=== PATIENT | female | born 1950 ===

== ENCOUNTER 2019-02-23 14:23 | Emergency (ER) | payer MEDICARE, BC ==
--- NOTE | 2019-02-23 14:51 | Emergency Department Record ---
History of Present Illness - General Chief Complaint: Fall Injury Stated Complaint: FALL Time Seen by Provider: 02/23/19 14:34 Source: Patient Mode of Arrival: Ambulatory Limitations: No limitations - History of Present Illness Initial Comments: The patient is here due to a trip and fall at [facility] about 2 hours ago. She tripped and landed on her R shoulder injuring it. The patient denied any other injury and did not hit her head, hurt her neck or ribs. 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 Witnessed: Yes, by bystander Place Fall Occurred: Other Loss of Consciousness: None Prolonged Down Time?: No Symptoms Prior to Fall: None Severity: Moderate Severity scale (1-10): 8 Quality: Other Context: Tripped/slipped Associated Symptoms: Denies - Kimberlee Coma Scale Eye Response: (4) Open spontaneously Motor Response: (6) Obeys commands Verbal Response: (5) Oriented Kimberlee Total: 15 - Related Data Home Medications Medication Instructions Recorded Confirmed Last Taken Levothyroxine Sodium [Synthroid] 125 mcg PO DAILY 02/23/19 02/23/19 02/23/19 Metolazone [Zaroxolyn] 1 tab PO DAILY 02/23/19 02/23/19 02/23/19 Rosuvastatin Calcium 5 mg PO DAILY 02/23/19 02/23/19 02/23/19 Allergies Allergy/AdvReac Type Severity Reaction Status Date / Time Penicillins Allergy PT UNSURE Verified 02/23/19 14:30 OF REACTION Sulfa (Sulfonamide AdvReac SKIN Verified 02/23/19 14:30 Antibiotics) IRRITATION Travel Screening - Travel/Exposure Within Last 30 Days Have you traveled within the last 30 days?: No - Travel/Exposure Within Last Year Have you traveled outside the [place] in the last year?: No - Additonal Travel Details Have you been exposed to anyone with a communicable illness?: No - Travel Symptoms Symptom Screening: None Review of Systems Constitutional: Denies: Chills, Fever Eyes: Denies: Eye discharge ENT: Denies: Congestion Respiratory: Denies: Cough, Dyspnea Past Medical History - SOCIAL HISTORY Smoking Status: Never smoker Alcohol Use: Occasional Drug Use: None - RESPIRATORY Hx Respiratory Disorders: No - CARDIOVASCULAR Hx Cardio Disorders: Yes Comment:: high cholesterol - NEURO Hx Neuro Disorders: No - GI Hx GI Disorders: No - Hx Genitourinary Disorders: No - ENDOCRINE Hx Endocrine Disorders: Yes Hx Thyroid Disease: Yes - MUSCULOSKELETAL Hx Musculoskeletal Disorders: No Comment:: lymphedema - PSYCH Hx Psych Problems: No - HEMATOLOGY/ONCOLOGY Hx Hematology/Oncology Disorders: No Family Medical History Any Significant Family History?: Yes Hx Cancer: Brother/Sister Hx Heart Disease: Mother, Brother/Sister Physical Exam - General General Appearance: Alert, Oriented x3, Cooperative, No acute distress - Head Head exam: Atraumatic, Normocephalic, Normal inspection - Eye Eye exam: Normal appearance, PERRL, EOMI - Neck Neck exam: Normal inspection, Full ROM. negative: Tenderness - Respiratory Respiratory exam: Normal lung sounds bilaterally. negative: Respiratory distress - Cardiovascular Cardiovascular Exam: Regular rate, Normal rhythm, Normal heart sounds - GI/Abdominal GI/Abdominal exam: Soft - Extremities Extremities exam: Tenderness (There is tenderness to the proximal humerus and deltoid region.). negative: Normal inspection - Back Back exam: Reports: Normal inspection - Neurological Neurological exam: Alert. negative: Motor sensory deficit Course Vital Signs 02/23/19 14:33 Temperature 98.3 F Pulse Rate 84 Respiratory 20 Rate Blood Pressure 118/59 Pulse Ox 92 L - Reevaluation(s) Reevaluation #1: Procedure note: The patient was given 4 mg of Morphine for pain and the R shoulder was reduced with traction. The procedure was successful without complications. The patient had good ROM of the R shoulder with no pain after the procedure. The R arm was NVI with normal pulses before and after. 02/23/19 15:51 Medical Decision Making - Data Complexity MDM Data: X-Ray Ordered and/or Reviewed - Radiology Data Radiology results: Report reviewed (R shoulder: anterior inferior dislocation. Post reduction films: successful reduction. Possible Hill-Sachs deformity and possible glenoid avulsion. The patient was made aware of the findings and the need for F/U.) Disposition Disposition: Discharge Clinical Impression: Dislocated shoulder Qualifiers: Encounter type: initial encounter Laterality: right Qualified Code(s): S43.004A - Unspecified dislocation of right shoulder joint, initial encounter Disposition: Home, Self-Care Condition: (2) Stable Instructions: Shoulder Dislocation (ED) Additional Instructions: Please take Tylenol for pain and wear the sling for a week. Please see your family doctor next week for recheck and return to the ER for any worsening symptoms or pain. Forms: Patient Portal Access Time of Disposition: 16:02 Quality - Quality Measures Quality Measures: N/A - Blood Pressure Screening View Details: Yes Does Patient Have Any of the Following: No Blood Pressure Classification: Normal BP Reading Systolic Measurement: 118 Diastolic Measurement: 59 Screening for High Blood Pressure: < Normal BP, F/U Not Required > [[id number]]
[2019-02-23] MEDS ORDERED: ONDANSETRON HCL IV 4 MG/2 ML VIAL IVP ONE (15:14)
[2019-02-23] MEDS ORDERED: MORPHINE SULFATE 10 MG/ML VIAL IVP ONE (15:14)
--- NOTE | 2019-02-25 22:52 | RADIOLOGY REPORT ---
EXAM: SHOULDER, RIGHT HISTORY: RIGHT SHOULDER PAIN. AND LIMITED RANGE OF MOTION POST FALL. TECHNIQUE: Three views of the right shoulder. COMPARISON: None. ENCOUNTER: Initial. FINDINGS: There is anterior inferior dislocation of the humeral head relative to the osseous glenoid. No definite Hill-Sach deformity identified though curvilinear calcific density projects adjacent to the inferomedial margin of the osseous glenoid with glenoid fracture not excluded. There are moderate hypertrophic changes of the acromioclavicular joint. At least mild degenerative changes of the glenohumeral joint suspected. IMPRESSION: 1. ANTERIOR RIGHT SHOULDER DISLOCATION. 2. CURVILINEAR CALCIFIC DENSITY PROJECTING NEAR THE ANTERIOR INFERIOR MARGIN OF THE OSSEOUS GLENOID WITH GLENOID FRACTURE NOT EXCLUDED. 3. MODERATE HYPERTROPHIC CHANGES OF THE ACROMIOCLAVICULAR JOINT. JOB NUMBER: [id number] MTDD
== END 2019-02-23 16:57 | disposition home or self-care (01) ==
LOC: ER 14:23
DX: S43.084A Other dislocation of right shoulder joint, initial encounter (principal); W01.10XA Fall on same level from slipping, tripping and stumbling with subsequent striking against unspecified object, initial encounter; Y92.414 Local residential or business street as the place of occurrence of the external cause
CPT/HCPCS: 23650 ×2; 99284 ×2; 96374; 96375; 73030; J2405; J2270